=== PATIENT | male | born 1960 | race Caucasian/White ===

== ENCOUNTER 2017-07-18 08:45 | Emergency (ER) | payer MEDICAID, OTHER ==
[~2017-07-18] VITALS: Ht 170.2 cm; Wt 83.0 kg
[~2017-07-18 08:45] MED LIST: AZIT250T PO; CETI10TA15 PO; CETI10TA18 PO; NO HOME MEDS; PSEU-259 PO
[2017-07-18] MEDS ORDERED: AMOX-422 PO (09:32)
[2017-07-18 09:46] VITALS: BP 146/86
== END 2017-07-18 09:47 | disposition home or self-care (01) ==
LOC: ER 08:45
DX: J32.9 Chronic sinusitis, unspecified (principal); Z79.899 Other long term (current) drug therapy
CPT/HCPCS: 99283

== ENCOUNTER 2017-08-13 09:15 | Emergency (ER) | payer MEDICAID, OTHER ==
[~2017-08-13] VITALS: Ht 170.2 cm; Wt 67.2 kg
[2017-08-13] MEDS ORDERED: AMOX-580 PO (10:22)
[2017-08-13] MEDS ORDERED: AZIT-63 PO (10:59)
[2017-08-13] MEDS ORDERED: azithromycin 250mg tablet PO ONE (11:00)
== END 2017-08-13 11:11 | disposition home or self-care (01) ==
LOC: ER 09:15
DX: J01.01 Acute recurrent maxillary sinusitis (principal); J18.9 Pneumonia, unspecified organism; Z79.899 Other long term (current) drug therapy
CPT/HCPCS: 71046; 99284

== ENCOUNTER 2018-06-04 09:32 | Emergency (ER) | payer MEDICAID, OTHER ==
[~2018-06-04] VITALS: Ht 172.7 cm; Wt 81.8 kg
[2018-06-04 09:35] VITALS: BP 143/93
[2018-06-04] MEDS ORDERED: AZIT500T2 PO (09:55)
[2018-06-04] MEDS ORDERED: BENZ-16 PO (09:55)
== END 2018-06-04 10:17 | disposition home or self-care (01) ==
LOC: ER 09:33
DX: J20.9 Acute bronchitis, unspecified (principal)
CPT/HCPCS: 99283

== ENCOUNTER 2020-12-23 19:06 | Emergency (ER) | payer MEDICAID ==
[~2020-12-23] VITALS: Ht 172.7 cm; Wt 90.9 kg
[~2020-12-23 19:06] MED LIST changes: +ALBU6.7H9 INH; +GUAI120015 PO; +METH4TAB3 PO
[2020-12-23 19:27] VITALS: BP 138/86
== END 2020-12-23 21:46 | disposition home or self-care (01) ==
LOC: ER 19:07
DX: U07.1 COVID-19 (principal); R51.9 Headache, unspecified; F17.210 Nicotine dependence, cigarettes, uncomplicated; Z72.89 Other problems related to lifestyle; Z79.2 Long term (current) use of antibiotics; Z79.899 Other long term (current) drug therapy
CPT/HCPCS: 87635; 99283; C9803

== ENCOUNTER 2020-12-26 16:22 | Emergency (ER) | payer MEDICAID | END 2020-12-26 17:38 | disposition left against medical advice (07) | LOC: ER 16:23 | DX: Z53.21 Procedure and treatment not carried out due to patient leaving prior to being seen by health care provider (principal) ==

== ENCOUNTER 2021-07-01 07:44 | Emergency (ER) | payer SELFPAY ==
[~2021-07-01] VITALS: Ht 172.7 cm; Wt 88.6 kg
[~2021-07-01 07:44] MED LIST changes: -CETI10TA18 PO; +CETI10TA19 PO
[2021-07-01 07:55] VITALS: BP 167/98
[2021-07-01] MEDS ORDERED: triamcinolone acetonide 40mg/ml inj IM ONE (08:35)
[2021-07-01] MEDS ORDERED: ketorolac trometh inj. 60 MG/2 ML VIAL IM ONE (08:35)
[2021-07-01] MEDS ORDERED: LIDOCAINE 5% OINTMENT 35GM TP ONE (08:35)
[2021-07-01] MEDS ORDERED: acetaminophen 325mg tablet PO ONE (08:35)
[2021-07-01] MEDS ORDERED: acyclovir 200 MG capsule PO ONE (08:35)
[2021-07-01] MEDS ORDERED: ACYC-129 PO (08:38)
[2021-07-01] MEDS ORDERED: LIDO30CR TOP (08:38)
[2021-07-01] MEDS ORDERED: HYDR-3965 PO (08:38)
== END 2021-07-01 09:38 | disposition home or self-care (01) ==
LOC: ER 07:45
DX: B02.9 Zoster without complications (principal)
CPT/HCPCS: 96372; 99284; J1885; J3301

== ENCOUNTER 2022-01-20 10:50 | Emergency (ER) | payer MEDICAID ==
[~2022-01-20] VITALS: Ht 172.7 cm; Wt 86.4 kg
[~2022-01-20 10:50] MED LIST changes: +LIDO30CR TOP
[2022-01-20 11:00] VITALS: BP 143/88
[2022-01-20] MEDS ORDERED: ketorolac trometh inj. 60 MG/2 ML VIAL IM ONE (12:10)
[2022-01-20] MEDS ORDERED: cyclobenzaprine 10mg tablet PO ONE (12:10)
[2022-01-20] MEDS ORDERED: IBUP-1986 PO (12:14)
[2022-01-20] MEDS ORDERED: CYCL-1 PO (12:14)
== END 2022-01-20 12:26 | disposition home or self-care (01) ==
LOC: ER 10:50
DX: S39.012A Strain of muscle, fascia and tendon of lower back, initial encounter (principal); X50.0XXA Overexertion from strenuous movement or load, initial encounter; Y93.89 Activity, other specified; Y92.89 Other specified places as the place of occurrence of the external cause; Y99.8 Other external cause status
CPT/HCPCS: 96372; 99283; J1885

== ENCOUNTER 2022-02-04 08:51 | Emergency (ER) | payer MEDICAID ==
[~2022-02-04] VITALS: Ht 172.7 cm; Wt 94.9 kg
[~2022-02-04 08:51] MED LIST changes: +CYCL-1 PO; +IBUP-1986 PO
[2022-02-04 09:22] VITALS: BP 143/94
== END 2022-02-04 11:27 | disposition left against medical advice (07) ==
LOC: ER 08:53
DX: H57.13 Ocular pain, bilateral (principal); Z53.21 Procedure and treatment not carried out due to patient leaving prior to being seen by health care provider

== ENCOUNTER 2022-07-19 08:15 | Emergency (ER) | payer MEDICAID ==
[~2022-07-19] VITALS: Ht 175.3 cm; Wt 90.9 kg
[~2022-07-19 08:15] MED LIST changes: +ALBU6.7H14 INH; -ALBU6.7H9 INH
[2022-07-19 08:22] VITALS: BP 129/87
[2022-07-19] MEDS ORDERED: AMOX-117 PO (09:18)
[2022-07-19] MEDS ORDERED: BENZ-38 PO (09:18)
[2022-07-19] MEDS ORDERED: ALBU8HFA PO (09:18)
== END 2022-07-19 09:45 | disposition home or self-care (01) ==
LOC: ER 08:19
DX: J20.9 Acute bronchitis, unspecified (principal); J32.9 Chronic sinusitis, unspecified
CPT/HCPCS: 99283

== ENCOUNTER 2023-09-17 07:41 | Inpatient (IN) | payer MEDICAID ==
[~2023-09-17] VITALS: Ht 175.3 cm; Wt 90.6 kg
[2023-09-17] MEDS: aspirin 81mg tab.chew PO ONE (08:13)
[2023-09-17 08:37] LABS: BASOPHILS # (AUTO) 0.1 X10'3 (0-0.2); EOSINOPHILS # (AUTO) 0.3 X10'3 (0-0.9); EOSINOPHILS % (AUTO) 3.8 % (0-6); HEMATOCRIT 44.9 % (42.0-52.0); HEMOGLOBIN 15.4 g/dl (14.0-17.9); LYMPHOCYTES # (AUTO) 1.7 X10'3 (1.1-4.8); LYMPHOCYTES % (AUTO) 18.8 % (21-51); MEAN CORPUSCULAR HEMOGLOBIN 32.3 PG (27.0-31.0); MEAN CORPUSCULAR HGB CONC 34.3 g/dL (33.0-36.5); MEAN PLATELET VOLUME 6.8 FL (7.4-10.4); MONOCYTES # (AUTO) 0.8 X10'3 (0-0.9); MONOCYTES % (AUTO) 8.6 % (2-12); NEUTROPHILS # (AUTO) 6.1 X10'3 (1.8-7.7); NEUTROPHILS % (AUTO) 67.8 % (42-75); PLATELET COUNT 197 X10'3 (140-440); RED BLOOD COUNT 4.77 X10'6 (4.70-6.10); RED CELL DISTRIBUTION WIDTH 13.1 % (11.5-14.5)
[2023-09-17 08:47] LABS: PROTHROMBIN TIME 9.9 SECONDS (9.0-12.0)
[2023-09-17 08:55] LABS: INR 0.9 INR
[2023-09-17 09:02] LABS: ALBUMIN 3.5 G/DL (3.4-5.0); ANION GAP 6 (8-16); BLOOD UREA NITROGEN 14 MG/DL (7-18); BUN/CREATININE RATIO 12.3 (10.0-20.0); CALCIUM 8.9 MG/DL (8.5-10.1); CHLORIDE 102 MMOL/L (99-107); CREATININE 1.14 MG/DL (0.60-1.10); GLUCOSE 106 MG/DL (70-104); POTASSIUM 4.2 MMOL/L (3.5-5.1); PRO BRAIN NATRIURETIC PEPTIDE 106 PG/ML (0-125); SODIUM 137 MMOL/L (135-145); TOTAL CARBON DIOXIDE 28.7 MMOL/L (24-32); eCRCL 65 ML/MIN; eGFR 65 ML/MIN
[2023-09-17] MEDS ORDERED: potassium Cl 20 mEq SR tablet PO PRN ×2 (10:35)
[2023-09-17] MEDS ORDERED: magnesium 4gm in 100ml NS 100 ML IV PRN (10:35)
[2023-09-17] MEDS ORDERED: magnesium Cl slow-release 64mg tablet PO PRN (10:35)
[2023-09-17] MEDS ORDERED: ondansetron/PF 4mg/2ml inj IV PRN (10:35)
[2023-09-17] MEDS ORDERED: potassium Cl 40MEQ/1/2NS 520ml 520 ML IV PRN (10:35)
[2023-09-17] MEDS ORDERED: acetaminophen 325mg tablet PO PRN (10:35)
[2023-09-17] MEDS ORDERED: magnesium 2GM in 50ml NS 50 ML IV PRN (10:35)
[2023-09-17] MEDS: PERFLUTREN PROTEIN-A MICROSPHR (Optison) 0.22 MG/ML 3ML VIAL IV ONE (13:13)
[2023-09-17] MEDS: K and/or MAG REPLACEMENT MC SCH (19:58)
[2023-09-17 23:30] VITALS: RESP 16
[2023-09-17 23:33] VITALS: BP 135/78; PULSE 59; RESP 16; TEMP 98.1; O2SAT 96
[2023-09-18] VITALS (8 sets, daily range): BP systolic 133–159; BP diastolic 81–88; PULSE 54–67; RESP 14–21; TEMP 96.9–98.2; O2SAT 54–99
[2023-09-18 09:14] LABS: BASOPHILS # (AUTO) 0.1 X10'3 (0-0.2); BASOPHILS % (AUTO) 1.1 % (0-1); EOSINOPHILS # (AUTO) 0.3 X10'3 (0-0.9); EOSINOPHILS % (AUTO) 3.7 % (0-6); HEMATOCRIT 45.5 % (42.0-52.0); HEMOGLOBIN 15.6 g/dl (14.0-17.9); LYMPHOCYTES # (AUTO) 1.4 X10'3 (1.1-4.8); LYMPHOCYTES % (AUTO) 18.1 % (21-51); MEAN CORPUSCULAR HEMOGLOBIN 32.3 PG (27.0-31.0); MEAN CORPUSCULAR HGB CONC 34.2 g/dL (33.0-36.5); MEAN CORPUSCULAR VOLUME 94.3 FL (78-98); MEAN PLATELET VOLUME 7.2 FL (7.4-10.4); MONOCYTES # (AUTO) 0.6 X10'3 (0-0.9); MONOCYTES % (AUTO) 7.9 % (2-12); NEUTROPHILS # (AUTO) 5.4 X10'3 (1.8-7.7); NEUTROPHILS % (AUTO) 69.2 % (42-75); PLATELET COUNT 196 X10'3 (140-440); RED BLOOD COUNT 4.82 X10'6 (4.70-6.10); RED CELL DISTRIBUTION WIDTH 13.5 % (11.5-14.5); WHITE BLOOD COUNT 7.9 X10'3 (4.5-11.0)
[2023-09-18 09:34] LABS: ALBUMIN 3.2 G/DL (3.4-5.0); ANION GAP 7 (8-16); BLOOD UREA NITROGEN 13 MG/DL (7-18); BUN/CREATININE RATIO 12.4 (10.0-20.0); CALCIUM 8.8 MG/DL (8.5-10.1); CHLORIDE 103 MMOL/L (99-107); CREATININE 1.05 MG/DL (0.60-1.10); GLUCOSE 108 MG/DL (70-104); MAGNESIUM 2.1 MG/DL (1.5-2.4); POTASSIUM 4.6 MMOL/L (3.5-5.1); SODIUM 137 MMOL/L (135-145); TOTAL CARBON DIOXIDE 27.4 MMOL/L (24-32); eCRCL 71 ML/MIN; eGFR 71 ML/MIN
[2023-09-19 02:00] VITALS: BP 134/84; PULSE 59; RESP 14; TEMP 96.9; O2SAT 96
[2023-09-19 06:00] VITALS: BP 122/82; PULSE 60; RESP 14; TEMP 97.9; O2SAT 95
[2023-09-19 07:02] LABS: BASOPHILS # (AUTO) 0.1 X10'3 (0-0.2); EOSINOPHILS # (AUTO) 0.3 X10'3 (0-0.9); EOSINOPHILS % (AUTO) 3.7 % (0-6); HEMATOCRIT 48.4 % (42.0-52.0); HEMOGLOBIN 16.6 g/dl (14.0-17.9); LYMPHOCYTES # (AUTO) 1.4 X10'3 (1.1-4.8); LYMPHOCYTES % (AUTO) 16.8 % (21-51); MEAN CORPUSCULAR HEMOGLOBIN 32.7 PG (27.0-31.0); MEAN CORPUSCULAR HGB CONC 34.4 g/dL (33.0-36.5); MEAN CORPUSCULAR VOLUME 95.3 FL (78-98); MEAN PLATELET VOLUME 7.3 FL (7.4-10.4); MONOCYTES # (AUTO) 0.7 X10'3 (0-0.9); MONOCYTES % (AUTO) 7.9 % (2-12); NEUTROPHILS % (AUTO) 70.6 % (42-75); PLATELET COUNT 197 X10'3 (140-440); RED BLOOD COUNT 5.08 X10'6 (4.70-6.10); RED CELL DISTRIBUTION WIDTH 13.3 % (11.5-14.5); WHITE BLOOD COUNT 8.5 X10'3 (4.5-11.0)
[2023-09-19 07:08] LABS: ALBUMIN 3.1 G/DL (3.4-5.0); ANION GAP 8 (8-16); BLOOD UREA NITROGEN 16 MG/DL (7-18); CHLORIDE 102 MMOL/L (99-107); GLUCOSE 100 MG/DL (70-104); MAGNESIUM 1.9 MG/DL (1.5-2.4); POTASSIUM 4.3 MMOL/L (3.5-5.1); SODIUM 136 MMOL/L (135-145); eCRCL 75 ML/MIN; eGFR 75 ML/MIN
[2023-09-19 08:00] VITALS: RESP 14; O2SAT 95
== END 2023-09-19 09:47 | disposition left against medical advice (07) | DRG 385 ==
LOC: ER 07:41 → OBSVTOIN 10:46 → ED HOLD 10:46 → PCU 3S 23:25
PROVIDERS: ADMIT Internal Medicine; ATTEND Internal Medicine
DX: D17.79 Benign lipomatous neoplasm of other sites (principal); L72.0 Epidermal cyst; R06.02 Shortness of breath; Z53.21 Procedure and treatment not carried out due to patient leaving prior to being seen by health care provider; Z79.899 Other long term (current) drug therapy; Z86.16 Personal history of COVID-19; Z88.0 Allergy status to penicillin
CPT/HCPCS: 36415; 71045; 80048; 83735; 83880; 84484; 85025; 85610; 87081; 93005; 93306; 99285; G0378